=== PATIENT | male | born 1995 | race Caucasian/White ===

== ENCOUNTER 2021-03-01 06:53 | Emergency (ER) | payer OTHER, SELFPAY ==
[~2021-03-01] VITALS: Ht 177.8 cm; Wt 73.6 kg
[2021-03-01 06:53] VITALS: BP 152/86
[2021-03-01] MEDS ORDERED: KETOROLAC TROMETHAMINE 10 MG TAB PO ONE (07:40)
[2021-03-01] MEDS ORDERED: LIDOCAINE VISCOUS 2% SOLN 15ML UDC SSP ONE (07:40)
[2021-03-01] MEDS ORDERED: LIDO2SOL9 PO (07:41)
[2021-03-01] MEDS ORDERED: AUGM875T28 PO (07:41)
[2021-03-01] MEDS ORDERED: KETO10TAB PO (07:41)
== END 2021-03-01 08:00 | disposition home or self-care (01) ==
LOC: M ED 06:53
DX: K04.7 Periapical abscess without sinus (principal); R51.9 Headache, unspecified; F17.200 Nicotine dependence, unspecified, uncomplicated

== ENCOUNTER 2021-06-08 09:31 | Emergency (ER) | payer SELFPAY ==
[~2021-06-08] VITALS: Ht 177.8 cm; Wt 65.8 kg
[~2021-06-08 09:31] MED LIST: AUGM875T28 PO; KETO10TAB PO; LIDO2SOL9 PO
[2021-06-08] MEDS ORDERED: BOOSTRIX/ADACEL VACCINE (DIPHTH/PERTUSS/ACELL/TETANUS) 0.5ML SYR IM ONE (10:40)
[2021-06-08 11:58] VITALS: BP 136/72
== END 2021-06-08 11:59 | disposition home or self-care (01) ==
LOC: M ED 09:31
DX: S91.332A Puncture wound without foreign body, left foot, initial encounter (principal); W26.8XXA Contact with other sharp object(s), not elsewhere classified, initial encounter; Y92.009 Unspecified place in unspecified non-institutional (private) residence as the place of occurrence of the external cause; Y93.9 Activity, unspecified; Y99.9 Unspecified external cause status; F17.210 Nicotine dependence, cigarettes, uncomplicated

== ENCOUNTER 2021-11-07 01:52 | Emergency (ER) | payer SELFPAY ==
[~2021-11-07] VITALS: Ht 177.8 cm; Wt 75.0 kg
[2021-11-07 01:57] VITALS: BP 127/74
== END 2021-11-07 05:35 | disposition left against medical advice (07) ==
LOC: M ED 01:52 → EDBD 01:52 → M ED 05:35
DX: Z53.21 Procedure and treatment not carried out due to patient leaving prior to being seen by health care provider (principal)

== ENCOUNTER 2023-07-09 02:20 | Emergency (ER) | payer OTHER, SELFPAY ==
[~2023-07-09] VITALS: Ht 177.8 cm; Wt 82.1 kg
[~2023-07-09 02:20] MED LIST changes: +LIDO2SOBTL PO; -LIDO2SOL9 PO
[2023-07-09 03:01] LABS: HEMATOCRIT 46.1 % (42.0-52.0); HEMOGLOBIN 15.7 g/dl (13.5-17.5); MEAN CORPUSCULAR HEMOGLOBIN 30.4 pg (27.0-33.0); MEAN CORPUSCULAR HGB CONC 34.1 g/dl (32.0-36.5); MEAN CORPUSCULAR VOLUME 89.3 fl (80.0-96.0); PLATELET COUNT, AUTOMATED 322 10^3/uL (150-450); RED BLOOD COUNT 5.16 10^6/uL (4.30-6.10); WHITE BLOOD COUNT 16.2 10^3/uL (4.0-10.0)
[2023-07-09 03:22] LABS: CK-MB VALUE MASS 1.1 NG/ML (<3.6)
[2023-07-09 03:23] LABS: BLOOD UREA NITROGEN 17 MG/DL (9-23); CALCIUM LEVEL 9.1 MG/DL (8.5-10.1); CARBON DIOXIDE LEVEL 23 MMOL/L (20-31); CHLORIDE LEVEL 110 MMOL/L (98-107); CREATININE FOR GFR 0.82 MG/DL (0.70-1.30); GLOMERULAR FILTRATION RATE > 60.0 (>60); GLUCOSE, FASTING 121 MG/DL (60-100); POTASSIUM SERUM 4.1 MMOL/L (3.5-5.1); SODIUM LEVEL 142 MMOL/L (136-145)
[2023-07-09 03:24] LABS: CPK CREATINE PHOSPHOKINASE 194 U/L (46-171); MB/CK RELATIVE INDEX 0.56 (< OR =4)
[2023-07-09 03:27] LABS: ATYPICAL LYMPH 19 % (0-5); BASOPHILS 1 % (0-1); EOSINOPHILS 1 % (0-3); LYMPHOCYTES 16 % (16-44); MONOCYTES 6 % (0-5); NEUTROPHILS 57 % (28-66); PLATELET ESTIMATE NORMAL (NORMAL)
[2023-07-09] MEDS ORDERED: KETOROLAC 30 MG/ML 1ML VIAL IV ONE (03:45)
[2023-07-09] MEDS ORDERED: NS 1,000 ML IV ONE (03:45)
[2023-07-09] MEDS ORDERED: ISOVUE-370 76% 100ML VIAL As Ordered ONE (03:52)
[2023-07-09 04:14] LABS: CK-MB VALUE MASS 1.2 NG/ML (<3.6)
[2023-07-09 04:17] LABS: CPK CREATINE PHOSPHOKINASE 179 U/L (46-171); MB/CK RELATIVE INDEX 0.67 (< OR =4)
[2023-07-09] MEDS ORDERED: KETO10TAB PO (06:53)
[2023-07-09] MEDS ORDERED: ELIQ5TAB PO (07:04)
[2023-07-09] MEDS ORDERED: APIXABAN 5 MG TAB (ELIQUIS) PO ONE (07:05)
[2023-07-09 07:17] VITALS: TEMP 97.3
[2023-07-09 07:51] LABS: INR 1.03; PROTHROMBIN TIME 13.2 SECONDS (12.5-14.5)
[2023-07-09 07:52] LABS: PARTIAL THROMBOPLASTIN TIME 30.3 SECONDS (24.8-34.2)
[2023-07-09 08:30] VITALS: BP 140/91; O2SAT 100
[2023-07-12 09:37] LABS: DRVV SCREEN 49.7 SECONDS
[2023-07-12 10:12] LABS: PTT LUPUS TYPE ANTICOAG SCREEN 1.24 (0-1.20)
[2023-07-12 10:19] LABS: DRVV CONFIRM 35.3 SECONDS; LUPUS CONFIRM RATIO 0.92
[2023-07-12 10:21] LABS: NORMALIZED RATIO 1.34 (0.00-1.20)
[2023-07-14 14:11] LABS: HEXAGONAL PHASE PHOSPHOLIPID 9 sec (0-11)
== END 2023-07-09 08:53 | disposition home or self-care (01) ==
LOC: M ED 02:20
DX: R07.9 Chest pain, unspecified (principal); I26.99 Other pulmonary embolism without acute cor pulmonale; Z79.01 Long term (current) use of anticoagulants; Z79.899 Other long term (current) drug therapy
CPT/HCPCS: 71045; 71275; 80048; 81240; 82550; 82553; 84311; 85025; 85300; 85301; 85303; 85305; 85598; 85610; 85613; 85730; 86147; 93005; 96361; 96374; 99285; J1885; Q9967